=== PATIENT | female | born 1990 | race Caucasian/White ===

== ENCOUNTER 2020-04-13 08:19 | Outpatient (NON) | payer OTHER, SELFPAY ==
[2020-04-13 16:50] LABS: SARS-CoV-2 RNA PCR Negative
== END 2020-04-13 08:20 ==
PROVIDERS: PCP Family Medicine; Visit Provider Family Medicine
DX: R68.89 Other general symptoms and signs (principal); Z20.828 Contact with and (suspected) exposure to other viral communicable diseases
CPT/HCPCS: 87635; C9803; U0003

== ENCOUNTER 2023-07-30 09:01 | Emergency (ER) | payer BC, SELFPAY ==
--- NOTE | ~2023-07-30 | CT_ITS ---
EXAMINATION: CT brain wo con DATE: 07/30/2023 09:31 INDICATION: Head injury. TECHNIQUE: Computed tomography (CT) of the head was performed without intravenous contrast. The mA wa s adjusted according to patient size. Iterative reconstruction technique was employed. Exam dose: 60 5.33 mGy-cm total exam DLP. COMPARISON: None FINDINGS: No intracranial mass lesion or hemorrhage or cerebrovascular accident, midline shift or mas s effect is detected. Minimal bilateral basal ganglia calcifications. Normal wagner-white matter differ entiation. Normal ventricular size. An opacified right ethmoid air cell is noted. Included paranasal sinuses and the mastoid air cells ot herwise appear normally developed and aerated. No fracture or bone destruction of the cranial vault. IMPRESSION: No skull fracture or acute intracranial finding Reviewed, dictated and finalized at [facility]. Reviewed, dictated and finalized at [facility].
[2023-07-30 09:01] VITALS: BP 117/73; PULSE 90; RESP 16; TEMP 37; O2SAT 99
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
== END 2023-07-30 10:06 | disposition home or self-care (01) ==
PROVIDERS: Emergency Provider Physician Assistant; PCP Family Medicine
DX: S09.90XA Unspecified injury of head, initial encounter (principal); W50.0XXA Accidental hit or strike by another person, initial encounter; Y93.75 Activity, martial arts
CPT/HCPCS: 70450; 81025; 99284